=== PATIENT | male | born 1965 | race Caucasian/White ===

== ENCOUNTER 2018-10-09 09:42 | Emergency (ER) | payer MEDICAID ==
[~2018-10-09] VITALS: Ht 157.5 cm; Wt 68.0 kg
[2018-10-09 09:56] VITALS: Ht 157.5 cm; Wt 68.0 kg
[2018-10-09 11:19] LABS: PLATELET COUNT 258 x10^3mcL (130-400)
[2018-10-09 11:22] LABS: CARBON DIOXIDE 31.6 mmol/L (21-32); CHLORIDE SERUM 104 mmol/L (98-107); GFR1 > 60 mL/min; GLUCOSE SERUM 107 mg/dL (74-106); POTASSIUM SERUM 4.4 mmol/L (3.5-5.1); SODIUM SERUM 139 mmol/L (136-145)
[2018-10-09 11:23] LABS: microscopic required? NO
[2018-10-09 11:26] LABS: UA SPECIFIC GRAVITY <=1.005 (1.005-1.035); urine erythrocyte NEGATIVE (NEGATIVE)
[2018-10-09 11:27] LABS: BASOPHIL % 2.3 % (0-2); RED CELL DISTRIBUTION WIDTH 16.4 % (11.5-14.5)
[2018-10-09 11:35] LABS: ALBUMIN 3.8 g/dL (3.4-5.0); ALKALINE PHOSPHATASE 103 U/L (46-116); ALT/SGPT 21 U/L (16-63); AST/SGOT 19 U/L (15-37); BILIRUBIN TOTAL 0.28 mg/dL (0.20-1.00); FREE T4 0.98 ng/dL (0.76-1.46)
[2018-10-09 11:36] LABS: AMPHETAMINE QUAL UR NONE DETECTED (See below)
[2018-10-09 13:51] VITALS: BP 152/78
== END 2018-10-09 13:51 | disposition home or self-care (01) ==
LOC: ED 09:42
PROVIDERS: Emergency Medicine
DX: R51 Headache (principal); M54.5 Low back pain; J44.9 Chronic obstructive pulmonary disease, unspecified; F32.9 Major depressive disorder, single episode, unspecified; Z86.73 Personal history of transient ischemic attack (TIA), and cerebral infarction without residual deficits; Z95.0 Presence of cardiac pacemaker; Z88.6 Allergy status to analgesic agent; Z98.85 Transplanted organ removal status
CPT/HCPCS: 36415; 83880; 84439; G0480